=== PATIENT | male | born 1995 | race Caucasian/White ===

== ENCOUNTER 2020-02-11 07:20 | Emergency (ER) | payer SELFPAY ==
[2020-02-11] MEDS ORDERED: MORPHINE 2 MG/ML SYR ONE (07:53)
[2020-02-11] MEDS ORDERED: NA CHLORIDE 0.9% 1,000 ML ONE (07:53)
[2020-02-11] MEDS ORDERED: ONDANSETRON 4 MG/2 ML VIAL ONE ×2 (07:53→09:01)
[2020-02-11] MEDS ORDERED: FAMOTIDINE 20 MG/2 ML VIAL IV ONE (07:53)
[2020-02-11 08:05] LABS: Absolute Lymphocytes (CBC) 3.4 K/uL (0.7-4.9); Basophils % 0.9 % (0-1.3); Hematocrit 52.4 % (39.6-49.0); Lymphocytes % 33.6 % (15.3-44.8); MPV 8.4 fL (7.6-11.3)
[2020-02-11 08:06] LABS: Protime INR 1.06
[2020-02-11 08:22] LABS: ALT/SGPT 23 U/L (12-78); AST/SGOT 29 U/L (15-37); Albumin 4.6 g/dL (3.4-5.0); Alkaline Phosphatase 86 U/L (45-117); BUN Blood Urea Nitrogen 8 mg/dL (7-18); Bicarbonate 22 mmol/L (21-32); Bilirubin Direct 0.2 mg/dL (0-0.2); Bilirubin Total 0.6 mg/dL (0.2-1.0); Glucose Level 101 mg/dL (74-106); Protein, Total 8.6 g/dL (6.4-8.2); Sodium Level 139 mmol/L (136-145)
[2020-02-11 08:40] LABS: Urine Blood NEGATIVE (NEG); Urine Glucose NEGATIVE (NEG); Urine Protein NEGATIVE (NEG); Urine pH 6.5 (5.0-7.0)
[2020-02-11 09:19] LABS: Barbiturates NEGATIVE (NEGATIVE); Benzodiazepines NEGATIVE (NEGATIVE); Cocaine NEGATIVE (NEGATIVE); METHAMPHETAM NEGATIVE (NEGATIVE); Methadone NEGATIVE (NEGATIVE); Opiates NEGATIVE (NEGATIVE); Phencyclidine NEGATIVE (NEGATIVE); THC Cannibis NEGATIVE (NEGATIVE)
--- NOTE | 2020-02-11 09:23 | RAD REPORT ---
EXAM DESCRIPTION: CT - Abdomen Pelvis W Contrast - 02/11/2020 8:43 am CLINICAL HISTORY: ABD PAIN COMPARISON: No comparisons TECHNIQUE: Biphasic, helical CT imaging of the abdomen and pelvis was performed following 100 ml non -ionic IV contrast. No oral contrast given. All CT scans are performed using dose optimization technique as appropriate and may include automated exposure control or mA/KV adjustment according to patient size. FINDINGS: No suspicious findings in the lung bases. Liver and spleen show no suspicious findings. No pancreatic mass or pancreatitis findings seen. Gallb ladder and biliary tree are also without suspicious finding. Symmetric renal function is seen with no hydronephrosis or suspicious renal mass. No pyelonephritis o r acute parenchymal process. No bladder abnormalities. No adrenal abnormalities. No dilated bowel loops or bowel wall thickening. No appendicitis findings. Mild prominence of the wal ls of the gastric antrum not outside of normal range. Remainder the stomach shows no wall thickening, mass or edema. No abnormal varices confirmed. No free air, free fluid or inflammatory stranding. No hernia, mass or bulky lymphadenopathy. No suspicious bony findings. IMPRESSION: Contrast enhanced CT abdomen and pelvis showing no emergent finding. Minimal prominence of the gastric antrum not outside of normal range. Mild gastritis/antritis and mil d bowel enteritis findings can be occult on CT imaging.
[2020-02-11] MEDS ORDERED: METOCLOPRAMIDE 10 MG/2mL INJ ONE ×2 (09:45→10:32)
[2020-02-11] MEDS ORDERED: NA CHLORIDE 0.9% 100 ML IV ONE (09:46)
[2020-02-11] MEDS ORDERED: FOLIC ACID 1 MG, MULTIVITAMINS INJ 10 ML, THIAMINE HCL 100 MG in NA CHLORIDE 0.9% 1,000 ML IV ONE (10:00)
--- NOTE | 2020-02-11 11:21 | ER ---
Nurse's Notes [facility] Name: Khang Varghese Age: 24 yrs Sex: Male : 1995 Arrival Date: 02/11/2020 Time: 07:25 Bed 17 Private MD: Diagnosis: Alcohol abuse with intoxication Presentation: 02/10 07:25 Chief complaint: EMS states: EMS called for "pain all over", pt found to be restless ph and somewhat combative on scene. Reports to drinking liquor for the past 3 days, denies drug use. Coronavirus screen: Client denies travel out of the [place] in the last 14 days. At this time, the client does not indicate any symptoms associated with coronavirus-19. Ebola Screen: No symptoms or risks identified at this time. Initial Sepsis Screen: Does the patient meet any 2 criteria? No. Patient's initial sepsis screen is negative. Does the patient have a suspected source of infection? No. Patient's initial sepsis screen is negative. Risk Assessment: Do you want to hurt yourself or someone else? Patient reports no desire to harm self or others. 07:25 Method Of Arrival: EMS: [facility] 07:25 Acuity: SALLY 2 ph 07:25 Onset of symptoms was February 11, 2020. ph Historical: - Allergies: 07:30 No Known Drug Allergies; ph - Home Meds: 07:30 None [Active]; ph - PMHx: 07:30 None; ph - Immunization history:: Adult Immunizations unknown. - Social history:: Patient uses alcohol, Patient/guardian denies using street drugs. Screenin:32 Abuse screen: Denies threats or abuse. Denies injuries from another. Nutritional ph screening: No deficits noted. Tuberculosis screening: No symptoms or risk factors identified. Fall Risk None identified. Assessment: 07:30 General: Appears in no apparent distress. uncomfortable, slender, unkempt, Behavior is ph cooperative, agitated, anxious, restless. Pain: Complains of pain in "all over". Neuro: Level of Consciousness is awake, alert, obeys commands, Oriented to person, place, situation. Cardiovascular: Capillary refill < 3 seconds in bilateral fingers Patient's skin is warm and dry. Respiratory: Airway is patent Respiratory effort is even, unlabored. GI: Reports lower abdominal pain, upper abdominal pain, cramping, nausea. Derm: Skin is intact, Skin is pink, warm \\T\\ dry. Musculoskeletal: Circulation, motion, and sensation intact. Range of motion: intact in all extremities. 09:05 Reassessment: Patient appears in no apparent distress at this time. Patient and/or ph family updated on plan of care and expected duration. Pain level reassessed. Patient is alert, oriented x 3, equal unlabored respirations, skin warm/dry/pink. Pt appears calmer and is no longer restless and rolling in bed, reports that abdominal pain has improved, awaiting CT results. 10:33 Reassessment: Patient appears in no apparent distress at this time. Patient and/or ph family updated on plan of care and expected duration. Pain level reassessed. Patient is alert, oriented x 3, equal unlabored respirations, skin warm/dry/pink. 11:30 Reassessment: Patient appears in no apparent distress at this time. Patient and/or ph family updated on plan of care and expected duration. Pain level reassessed. Patient is alert, oriented x 3, equal unlabored respirations, skin warm/dry/pink. Pt reports that he is no longer nauseous, denies pain states, " I'm just really tired and ready to go home." Patient states feeling better. Vital Signs: 07:25 BP 138 / 102; Pulse 118; Resp 24; Temp 99.1(TE); Pulse Ox 100% on R/A; ph 09:06 BP 125 / 87; Pulse 97; Resp 18; Pulse Ox 100% on R/A; ph 10:33 BP 107 / 59; Pulse 78; Resp 18; Pulse Ox 100% on R/A; ph 11:30 BP 116 / 80; Pulse 72; Resp 18; Temp 97.9; Pulse Ox 100% on R/A; ph ED Course: 07:25 Patient arrived in ED. ph 07:29 Triage completed. ph 07:30 Arm band placed on Patient placed in an exam room, on a stretcher, on pulse oximetry. ph 07:33 Patient has correct armband on for positive identification. Bed in low position. Call ph light in reach. Side rails up X2. Pulse ox on. NIBP on. Door closed. Noise minimized. Warm blanket given. 07:35 Jaiden Villalobos MD is Attending Physician. kdr 07:42 Bernadine Guzman RN is Primary Nurse. ph 07:53 Inserted saline lock: 20 gauge in right antecubital area, using aseptic technique. zb 08:43 CT Abd/Pelvis - IV Contrast Only In Process Unspecified. EDMS 11:45 No provider procedures requiring assistance completed. IV discontinued, intact, ph bleeding controlled, No redness/swelling at site. Pressure dressing applied. Administered Medications: 07:52 Drug: NS 0.9% 1000 ml Route: IV; Rate: 1 bolus; Site: right antecubital; ph 12:04 Follow up: Response: No adverse reaction; IV Status: Completed infusion; IV Intake: ph 1000ml 07:53 Drug: Zofran (Ondansetron) 4 mg Route: IVP; Site: right antecubital; ph 08:30 Follow up: Response: No adverse reaction ph 07:53 Drug: morphine 4 mg Route: IVP; Site: right antecubital; ph 12:15 Follow up: Response: No adverse reaction; Pain is decreased ph 07:54 Drug: Pepcid 20 mg Route: IVP; Site: right antecubital; ph 08:30 Follow up: Response: No adverse reaction; Pain is decreased ph 10:32 Drug: Banana Bag - (NS 0.9% 1000 ml, foLIC Acid 1 mg, Thiamine 100 mg, Multivitamin 1 ph amp) Route: IV; Rate: calculated rate; Site: right antecubital; 11:45 Follow up: Response: No adverse reaction; IV Status: Completed infusion; IV Intake: ph 250ml 10:32 Drug: Reglan 5 mg {Note: mixed in 50 mL NS.} Route: IVP; Site: right antecubital; ph 11:00 Follow up: Response: No adverse reaction; Nausea is decreased ph Intake: 11:45 IV: 250ml; Total: 250ml. ph 12:04 IV: 1000ml; Total: 1250ml. ph Outcome: 11:20 Discharge ordered by . kdr 11:46 Patient left the ED. ph 11:46 Discharged to home ambulatory. ph 11:46 Condition: good 11:46 Discharge instructions given to patient, Instructed on discharge instructions, follow up and referral plans. medication usage, Demonstrated understanding of instructions, follow-up care, medications, Prescriptions given X 1. Signatures: Dispatcher [employer] Jaiden Myers MD MD kdr Hall, Patricia RN RN Alivia Perlata RN RN zb
--- NOTE | 2020-02-11 11:21 | EDPHYS ---
Physician Documentation [facility] Name: Khang Varghese Age: 24 yrs Sex: Male : 1995 Arrival Date: 02/11/2020 Time: 07:25 Bed 17 Private MD: ED Physician Jaiden Villalobos HPI: 02/10 07:37 This 24 yrs old Male presents to ER via EMS with complaints of spasms and kdr abdominal pain. 07:37 mom states that the patient has not been feeling well for about three days. Patient kdr reports that he has been drinking liquor for three days but none in the last few hours. Now he is writhing in the bed and has carpal spasms. Occasionally, he appears to be dry having and he keeps requesting water. Onset: The symptoms/episode began/occurred suddenly, .75 hour(s) ago. Severity of symptoms: At their worst the symptoms were moderate severe incapacitating just prior to arrival, in the emergency department the symptoms are unchanged. The patient has not experienced similar symptoms in the past. The patient has not recently seen a physician. Historical: - Allergies: 07:30 No Known Drug Allergies; ph - Home Meds: 07:30 None [Active]; ph - PMHx: 07:30 None; ph - Immunization history:: Adult Immunizations unknown. - Social history:: Patient uses alcohol, Patient/guardian denies using street drugs. ROS: 07:37 Constitutional: Negative for fever, chills, and weight loss, Eyes: Negative for injury, kdr pain, redness, and discharge, Neck: Negative for injury, pain, and swelling, Cardiovascular: Negative for chest pain, palpitations, and edema, Respiratory: Negative for shortness of breath, cough, wheezing, and pleuritic chest pain, Back: Negative for injury and pain, : Negative for injury, bleeding, discharge, and swelling, MS/Extremity: Negative for injury and deformity. 07:37 Abdomen/GI: Positive for abdominal pain, nausea and vomiting, abdominal cramps, Negative for diarrhea, abdominal distension. Exam: 07:37 Constitutional: This is a well developed, well nourished patient who is awake, alert, kdr and in moderate to severe distress. Head/Face: Normocephalic, atraumatic. Eyes: Pupils equal round and reactive to light, extra-ocular motions intact. Lids and lashes normal. Conjunctiva and sclera are non-icteric and not injected. Cornea within normal limits. Periorbital areas with no swelling, redness, or edema. Neck: Trachea midline, no thyromegaly or masses palpated, and no cervical lymphadenopathy. Supple, full range of motion without nuchal rigidity, or vertebral point tenderness. No Meningismus. Chest/axilla: Normal chest wall appearance and motion. Nontender with no deformity. No lesions are appreciated. Cardiovascular: Regular rate and rhythm with a normal S1 and S2. No gallops, murmurs, or rubs. Normal PMI, no JVD. No pulse deficits. Respiratory: Lungs have equal breath sounds bilaterally, clear to auscultation and percussion. No rales, rhonchi or wheezes noted. No increased work of breathing, no retractions or nasal flaring. Back: No spinal tenderness. No costovertebral tenderness. Full range of motion. Skin: Warm, dry with normal turgor. Normal color with no rashes, no lesions, and no evidence of cellulitis. MS/ Extremity: Pulses equal, no cyanosis. Neurovascular intact. Full, normal range of motion. The patinet is having carpal spasms 07:37 Abdomen/GI: Inspection: abdomen appears normal, Bowel sounds: diminished, in all quadrants, Palpation: mild abdominal tenderness, in all quadrants. Vital Signs: 07:25 BP 138 / 102; Pulse 118; Resp 24; Temp 99.1(TE); Pulse Ox 100% on R/A; ph 09:06 BP 125 / 87; Pulse 97; Resp 18; Pulse Ox 100% on R/A; ph 10:33 BP 107 / 59; Pulse 78; Resp 18; Pulse Ox 100% on R/A; ph 11:30 BP 116 / 80; Pulse 72; Resp 18; Temp 97.9; Pulse Ox 100% on R/A; ph MDM: 10:21 Data reviewed: vital signs, nurses notes. Counseling: I had a detailed discussion with kdr the patient and/or guardian regarding: the historical points, exam findings, and any diagnostic results supporting the discharge/admit diagnosis, lab results, radiology results, the need for outpatient follow up. ED course: The patient is resting more comfortably at this time but still c/o n/v. 11:20 Patient medically screened. kdr 02/10 07:37 Order name: Acetaminophen; Complete Time: 09:21 kdr 02/10 07:37 Order name: Basic Metabolic Panel; Complete Time: 09:21 kdr 02/10 07:37 Order name: CBC with Diff; Complete Time: 09:21 kdr 02/10 07:37 Order name: ETOH Level; Complete Time: 09:21 kdr 02/10 07:37 Order name: Hepatic Function; Complete Time: 09: kdr 02/10 07:37 Order name: PT-INR; Complete Time: 09:21 kdr 02/10 07:37 Order name: Ptt, Activated; Complete Time: 09: kdr 02/10 07:37 Order name: Salicylate; Complete Time: 09: kdr 02/10 07:37 Order name: Urine Drug Screen; Complete Time: 09:21 kdr 02/10 07:37 Order name: CT Abd/Pelvis - IV Contrast Only kdr 02/10 08:36 Order name: Urine Dipstick--Ancillary (enter results); Complete Time: 09:21 em1 02/10 07:37 Order name: IV Saline Lock; Complete Time: 07:54 kdr 02/10 07:37 Order name: Labs collected and sent; Complete Time: 07:54 kdr 02/10 07:37 Order name: Urine Dipstick-Ancillary (obtain specimen); Complete Time: 08:36 kdr Administered Medications: 07:52 Drug: NS 0.9% 1000 ml Route: IV; Rate: 1 bolus; Site: right antecubital; ph 12:04 Follow up: Response: No adverse reaction; IV Status: Completed infusion; IV Intake: ph 1000ml 07:53 Drug: Zofran (Ondansetron) 4 mg Route: IVP; Site: right antecubital; ph 08:30 Follow up: Response: No adverse reaction ph 07:53 Drug: morphine 4 mg Route: IVP; Site: right antecubital; ph 12:15 Follow up: Response: No adverse reaction; Pain is decreased ph 07:54 Drug: Pepcid 20 mg Route: IVP; Site: right antecubital; ph 08:30 Follow up: Response: No adverse reaction; Pain is decreased ph 10:32 Drug: Banana Bag - (NS 0.9% 1000 ml, foLIC Acid 1 mg, Thiamine 100 mg, Multivitamin 1 ph amp) Route: IV; Rate: calculated rate; Site: right antecubital; 11:45 Follow up: Response: No adverse reaction; IV Status: Completed infusion; IV Intake: ph 250ml 10:32 Drug: Reglan 5 mg {Note: mixed in 50 mL NS.} Route: IVP; Site: right antecubital; ph 11:00 Follow up: Response: No adverse reaction; Nausea is decreased ph Disposition: 02/11/20 11:20 Discharged to Home. Impression: Alcohol abuse with intoxication. - Condition is Stable. - Discharge Instructions: Alcohol Use Disorder, Alcohol Intoxication, [id number], Alcohol Abuse and Nutrition, Alcohol Withdrawal, [id number]. - Prescriptions for chlordiazepoxide HCl 25 mg Oral capsule - take 1 capsule by ORAL route 4 times per day As needed For withdrawal symptoms; 12 capsule. - Medication Reconciliation Form, Thank You Letter form. - Follow up: Private Physician; When: 2 - 3 days; Reason: If symptoms return, Further diagnostic work-up, Recheck today's complaints, Continuance of care, Re-evaluation by your physician. - Problem is new. - Symptoms have improved. Signatures: Dispatcher [employer] EDMS Jaiden Villalobos MD MD kdr Bernadine Guzman RN RN ph Corrections: (The following items were deleted from the chart) 11:46 11:20 02/11/2020 11:20 Discharged to Home. Impression: Alcohol abuse with intoxication. ph Condition is Stable. Forms are Medication Reconciliation Form, Thank You Letter, Antibiotic Education, Prescription Opioid Use. Follow up: Private Physician; When: 2 - 3 days; Reason: If symptoms return, Further diagnostic work-up, Recheck today's complaints, Continuance of care, Re-evaluation by your physician. Problem is new. Symptoms have improved. kdr
[2020-02-11 11:59] VITALS: TEMP 99.1; O2SAT 100
[2020-02-11 12:02] VITALS: BP 107/59
== END 2020-02-11 11:46 | disposition home or self-care (01) ==
LOC: ER 07:20
DX: F10.129 Alcohol abuse with intoxication, unspecified (principal); R11.0 Nausea
CPT/HCPCS: 36415; 74177; 80048; 80076; 80307; 80320; 80329; 81003; 85025; 85610; 85730; 96361; 96365; 96375; 99284; J2270; J2405; J2765; J3411; J7030; Q9967

== ENCOUNTER 2021-11-05 17:35 | Emergency (ER) | payer SELFPAY ==
[2021-11-05] MEDS ORDERED: NICOTINE 21 MG/PAT TD ONE (18:09)
[2021-11-05] MEDS ORDERED: FENTANYL CITR 100 MCG/2 ML ONE (18:11)
[2021-11-05] MEDS ORDERED: NA CHLORIDE 0.9% 1,000 ML ONE (18:11)
[2021-11-05] MEDS ORDERED: ONDANSETRON 4 MG/2 ML VIAL ONE (18:11)
[2021-11-05 18:36] LABS: Hematocrit 48.6 % (39.6-49.0); Lymphocytes % 25.3 % (15.3-44.8); MCV 92.2 fL (80-100); MPV 7.6 fL (7.6-11.3); RBC Red Blood Cell Count 5.27 M/uL (4.33-5.43)
[2021-11-05 18:47] LABS: Albumin 4.6 g/dL (3.4-5.0); Bilirubin Total 0.7 mg/dL (0.2-1.0); Potassium 3.7 mmol/L (3.5-5.1); Protein, Total 8.5 g/dL (6.4-8.2)
--- NOTE | 2021-11-05 18:55 | ER ---
Nurse's Notes [facility] Name: Khang Varghese Age: 25 yrs Sex: Male : 1995 Arrival Date: 11/05/2021 Time: 17:55 Bed 5 Private MD: Diagnosis: Lower abdominal pain, unspecified Presentation: 11/05 18:00 Chief complaint: EMS states: LLQ pain that began today, rated pain 10/10 with NV; pt vg1 stated drinks a twelve pack of beer per day and today pt stated has had half a bottle of wine a one beer. Pt denies diarrhea or constipation. Pt states "I need a nicotine patch right now". 18:00 Coronavirus screen: Vaccine status: Patient reports being unvaccinated. Client denies vg1 travel out of the [place] in the last 14 days. Ebola Screen: Patient denies exposure to infectious person. Patient denies travel to an Ebola-affected area in the 21 days before illness onset. Initial Sepsis Screen: Does the patient meet any 2 criteria? No. Patient's initial sepsis screen is negative. Does the patient have a suspected source of infection? No. Patient's initial sepsis screen is negative. Risk Assessment: Do you want to hurt yourself or someone else? Patient reports no desire to harm self or others. Onset of symptoms was November 05, 2021. Care prior to arrival: Medication(s) given: Toradol 30 mg IVP x1 and Zofran 4 mg IVP x1 IV initiated. 18 GA, in the right antecubital area. 18:00 Method Of Arrival: EMS: [facility] vg1 18:00 Acuity: SALLY 3 vg1 Triage Assessment: 18:00 General: Appears uncomfortable, Behavior is anxious. Pain: Complains of pain in left vg1 lower quadrant Pain currently is 1 out of 10 on a pain scale. at worst was 8 out of 10 on a pain scale. Pain began today. EENT: No signs and/or symptoms were reported regarding the EENT system. Neuro: Level of Consciousness is awake, alert, obeys commands, Oriented to person, place, time, situation. Cardiovascular: Patient's skin is warm and dry. Respiratory: Airway is patent Respiratory effort is even, unlabored. GI: Abdomen is flat, Reports nausea, vomiting, Patient currently denies diarrhea. : No signs and/or symptoms were reported regarding the genitourinary system. Derm: Skin Skin is pink, warm \\T\\ dry. Musculoskeletal: Circulation, motion, and sensation intact. Historical: - Allergies: 18:34 No Known Allergies; vg1 - Home Meds: 18:34 None [Active]; vg1 - PMHx: 18:34 Anxiety; vg1 - PSHx: 18:34 None; vg1 - Immunization history:: Client reports having NOT received the Covid vaccine. - Social history:: Smoking status: Reported history of juuling and/or vaping. Screenin:36 Abuse screen: Denies threats or abuse. Nutritional screening: No deficits noted. vg1 Tuberculosis screening: No symptoms or risk factors identified. Fall Risk No fall in past 12 months (0 pts). No secondary diagnosis (0 pts). IV access (20 points). Ambulatory Aid- None/Bed Rest/Nurse Assist (0 pts). Gait- Normal/Bed Rest/Wheelchair (0 pts) Mental Status- Oriented to own ability (0 pts). Total [place] Fall Scale indicates No Risk (0-24 pts). Assessment: 18:43 General: pt refusing ct scan states that he is no longer having pain and is wanting to jh6 go home, provider advised. . Vital Signs: 18:00 BP 137 / 98; Pulse 94; Resp 20; Temp 99.0(TE); Pulse Ox 98% on R/A; Weight 52.16 kg; vg1 Height 5 ft. 11 in. (180.34 cm); Pain 1/10; 18:44 BP 118 / 84; Pulse 80; Resp 18; Temp 98; Pulse Ox 100% on R/A; Pain 0/10; jh6 18:00 Body Mass Index 16.04 (52.16 kg, 180.34 cm) vg1 ED Course: 17:55 Patient arrived in ED. bd 17:55 Bambi Gibson, ADAM is Primary Nurse. vg1 17:57 Prashant Cook PA is PHCP. cp 17:57 Prashant Landry MD is Attending Physician. cp 18:00 Arm band placed on. vg1 18:10 Initial lab(s) drawn, by me, sent to lab. vg1 18:10 No provider procedures requiring assistance completed. vg1 18:34 Triage completed. vg1 18:36 Patient has correct armband on for positive identification. Bed in low position. Call vg1 light in reach. Side rails up X 1. 18:59 IV discontinued, intact, bleeding controlled, No redness/swelling at site. Pressure jh6 dressing applied. Administered Medications: 18:08 Drug: Nicoderm CQ Patch 21 mg/24 hr 1 patches {Note: LEFT UPPER ARM .} Route: vg1 Transdermal; Site: affected area; 19:01 Follow up: Response: No adverse reaction vg1 18:12 Drug: NS 0.9% 1000 ml Route: IV; Rate: 1 bolus; Site: right antecubital; vg1 19:01 Follow up: IV Status: Completed infusion; IV Intake: 500ml vg1 18:12 Drug: Zofran (Ondansetron) 4 mg Route: IVP; Site: right antecubital; vg1 19:02 Follow up: Response: No adverse reaction; Marked relief of symptoms vg1 19:01 Not Given (Patient Refused): fentaNYL (PF) 25 mcg IVP once vg1 Medication: 18:37 VIS not applicable for this client. vg1 Intake: 19:01 IV: 500ml; Total: 500ml. vg1 Outcome: 18:54 Discharge ordered by . cp 18:59 Discharged to home ambulatory. jh6 18:59 Condition: good 18:59 Discharge instructions given to patient, Instructed on discharge instructions. 18:59 Patient left the ED. 6 Signatures: Yulisa Saldana Corey, PA PA cp Garcia, Victoria, RN RN 1 Petra Llamas RN RN 6
--- NOTE | 2021-11-05 18:55 | EDPHYS ---
Physician Documentation [facility] Name: Khang Varghese Age: 25 yrs Sex: Male : 1995 Arrival Date: 11/05/2021 Time: 17:55 Bed 5 Private MD: ED Physician Prashant Landry HPI: 11/05 18:00 This 25 yrs old Male presents to ER via EMS with complaints of Abdominal Pain. cp 18:00 The patient presents with abdominal pain in the left lower quadrant. Onset: The cp symptoms/episode began/occurred 1.5 hour(s) ago. The symptoms radiate to left back. Associated signs and symptoms: Pertinent positives: nausea, Pertinent negatives: chest pain, constipation, diarrhea, dysuria, fever, testicular pain, vomiting. The symptoms are described as constant. 18:00 Severity of pain: in the emergency department the pain is unchanged despite home cp interventions. Historical: - Allergies: 18:34 No Known Allergies; vg1 - Home Meds: 18:34 None [Active]; vg1 - PMHx: 18:34 Anxiety; vg1 - PSHx: 18:34 None; vg1 - Immunization history:: Client reports having NOT received the Covid vaccine. - Social history:: Smoking status: Reported history of juuling and/or vaping. ROS: 18:05 Constitutional: Negative for body aches, chills, fever, poor PO intake. cp 18:05 Eyes: Negative for injury, pain, redness, and discharge. cp 18:05 ENT: Negative for drainage from ear(s), ear pain, sore throat, difficulty swallowing, difficulty handling secretions. 18:05 Cardiovascular: Negative for chest pain, palpitations. 18:05 Respiratory: Negative for cough, shortness of breath, wheezing. 18:05 Abdomen/GI: Positive for abdominal pain, Negative for vomiting, diarrhea, constipation, black/tarry stool, rectal bleeding. 18:05 Back: Negative for pain at rest, pain with movement, radiated pain. 18:05 : Negative for urinary symptoms, hematuria, flank pain, testicular pain 18:05 Neuro: Negative for altered mental status, dizziness, headache, numbness, weakness. 18:05 All other systems are negative. Exam: 18:10 Constitutional: The patient appears in no acute distress, alert, awake, non-toxic, well cp developed, well nourished, uncomfortable. 18:10 Head/Face: Normocephalic, atraumatic. cp 18:10 Eyes: Periorbital structures: appear normal, Conjunctiva: normal, no exudate, no injection, Sclera: no appreciated abnormality, Lids and lashes: appear normal, bilaterally. 18:10 ENT: External ear(s): are unremarkable, Nose: is normal, Mouth: Lips: moist, Oral mucosa: moist, Posterior pharynx: Airway: no evidence of obstruction, patent. 18:10 Chest/axilla: Inspection: normal, Palpation: is normal, no crepitus, no tenderness. 18:10 Cardiovascular: Rate: normal, Rhythm: regular. 18:10 Respiratory: the patient does not display signs of respiratory distress, Respirations: normal, no use of accessory muscles, no retractions, labored breathing, is not present, Breath sounds: are clear throughout, no decreased breath sounds, no stridor, no wheezing. 18:10 Abdomen/GI: Inspection: abdomen appears normal, Bowel sounds: active, all quadrants, Palpation: soft, in all quadrants, severe abdominal tenderness, in the left lower quadrant, rebound tenderness, is not appreciated, voluntary guarding, is elicited in the left lower quadrant. 18:10 Back: CVA tenderness, is absent. 18:10 Neuro: Orientation: to person, place \T\ time. Mentation: is normal, Motor: moves all fours, strength is normal. Vital Signs: 18:00 BP 137 / 98; Pulse 94; Resp 20; Temp 99.0(TE); Pulse Ox 98% on R/A; Weight 52.16 kg; vg1 Height 5 ft. 11 in. (180.34 cm); Pain 1/10; 18:44 BP 118 / 84; Pulse 80; Resp 18; Temp 98; Pulse Ox 100% on R/A; Pain 0/10; jh6 18:00 Body Mass Index 16.04 (52.16 kg, 180.34 cm) vg1 MDM: 17:58 Patient medically screened. cp 18:52 Data reviewed: vital signs, nurses notes, lab test result(s). Response to treatment: cp the patient's symptoms have markedly improved after treatment. Refusal of service: The patient/guardian displays adequate decision making capability and despite a detailed discussion of alternatives, benefits, risks, and consequences refuses: CT Scan. ED course: Patient refused CT scan abdomen. Patient is able to make informed decisions and understands risk of missed diagnosis. Will discharge to home for continued monitoring. 11/05 17:58 Order name: CBC with Diff; Complete Time: 18:51 cp 11/05 17:58 Order name: CMP; Complete Time: 18:51 cp 11/05 17:58 Order name: Lipase; Complete Time: 18:51 cp 11/05 17:58 Order name: IV Saline Lock; Complete Time: 17:59 cp 11/05 17:58 Order name: Labs collected and sent; Complete Time: 18:29 cp Administered Medications: 18:08 Drug: Nicoderm CQ Patch 21 mg/24 hr 1 patches {Note: LEFT UPPER ARM .} Route: vg1 Transdermal; Site: affected area; 19:01 Follow up: Response: No adverse reaction vg1 18:12 Drug: NS 0.9% 1000 ml Route: IV; Rate: 1 bolus; Site: right antecubital; vg1 19:01 Follow up: IV Status: Completed infusion; IV Intake: 500ml vg1 18:12 Drug: Zofran (Ondansetron) 4 mg Route: IVP; Site: right antecubital; vg1 19:02 Follow up: Response: No adverse reaction; Marked relief of symptoms vg1 19:01 Not Given (Patient Refused): fentaNYL (PF) 25 mcg IVP once vg1 Disposition Summary: 11/05/21 18:54 Discharge Ordered Location: Home cp Problem: new cp Symptoms: have improved cp Condition: Stable cp Diagnosis - Lower abdominal pain, unspecified cp Followup: cp - With: Private Physician - When: 1 - 2 days - Reason: Recheck today's complaints Discharge Instructions: - Discharge Summary Sheet cp - Abdominal Pain, Adult cp Forms: - Medication Reconciliation Form cp - Thank You Letter cp - Antibiotic Education cp - Prescription Opioid Use cp Signatures: Dispatcher [employer] EDMS Prashant Cook PA PA cp Garcia, Victoria, RN RN vg1
[2021-11-05 21:17] VITALS: BP 118/84; TEMP 98; O2SAT 100
== END 2021-11-05 18:59 | disposition home or self-care (01) ==
LOC: ER 17:35
DX: R10.32 Left lower quadrant pain (principal); R11.0 Nausea
CPT/HCPCS: 36415; 80053; 83690; 85025; 96361; 96374; 99283; J2405; J3010; J7030